=== PATIENT | male | born 1955 | race Caucasian/White ===

== ENCOUNTER 2016-03-06 16:38 | Emergency (ER) ==
[2016-03-06 16:57] VITALS: BP 132/84; TEMP 98.4; BMI 30.7
[2016-03-06] MEDS ORDERED: NORCO 10-325 PO STA (17:01)
--- NOTE | 2016-03-06 17:27 | ED.PDOC ---
General ED Provider: Dr. ERICK LAN Chief Complaint: Extremity Pain/Injury Stated Complaint: right knee pain Time Seen by Physician: 16:40 (fall on right knee 1 day ago) Mode of Arrival: Wheelchair Information Source: Patient Exam Limitations: No limitations Primary Care Provider: LUIS DE JESUS Nursing and Triage Documentation Reviewed and Agree: Yes Musculoskeletal Complaint Exam - Knee Pain Complaint/Exam Mechanism of Injury: Reports: Trauma Onset/Duration: 1 day ago fall on right knee no other injury offered Symptoms Are: Still present Current Severity: Moderate Character: Reports: Aching, Throbbing Alleviating: Reports: Rest, Position Aggravating: Reports: Movement Associated Signs and Symptoms: Denies: Swelling, Redness, Bruising, Fever, Weakness, Numbness, Tingling Able to Bear Weight: Yes Savage Test Positive: No Siddhartha Test Positive: No Differential Diagnoses: Closed Fracture Review of Systems - Review Of Systems Constitutional: Reports: No symptoms Eyes: Reports: No symptoms Ears, Nose, Mouth, Throat: Reports: No symptoms Respiratory: Reports: No symptoms Cardiac: Reports: No symptoms GI: Reports: No symptoms : Reports: No symptoms Musculoskeletal: Reports: Joint pain (right knee only). Denies: Back pain, Neck pain Skin: Reports: No symptoms Neurological: Reports: No symptoms Endocrine: Reports: No symptoms Hematologic/Lymphatic: Reports: No symptoms All Other Systems: Reviewed and Negative Past Medical History - Past Medical History Previously Healthy: Yes Endocrine: Reports: None Cardiovascular: Reports: Hypertension Respiratory: Reports: None Hematological: Reports: Anemia Gastrointestinal: Reports: None, GERD Genitourinary: Reports: None Neuro/Psych: Reports: None, Seizure Musculoskeletal: Reports: None Cancer: Reports: None - Surgical History General Surgical History: Reports: Orthopedic - Family History Family History: Reports: Unknown - Social History Smoking Status: Never smoker Alcohol Screening: None Physical Exam - Physical Exam Appearance: Well-appearing, No pain distress, Well-nourished Eyes: PA, EOMI, Conjunctiva clear ENT: Ears normal, Nose normal, Oropharynx normal Respiratory: Airway patent, Breath sounds clear, Breath sounds equal, Respirations nonlabored Cardiovascular: RRR, Pulses normal, No rub, No murmur GI/: Soft, Nontender, No masses, Bowel sounds normal, No Organomegaly Musculoskeletal: Normal strength, ROM intact, No edema, No calf tenderness Skin: Warm, Dry, Normal color Neurological: Sensation intact, Motor intact, Reflexes intact, Cranial nerves intact, Alert, Oriented Psychiatric: Affect appropriate, Mood appropriate Critical Care Note - Critical Care Note Total Time (mins): 0 Course - Course Orders, Labs, Meds: Orders Category Date Time Status Hydrocodone Bit/Acetaminophen [Hume 10-325] MEDS 03/06/16 17:01 Discontinued 1 tab PO ONCE STA KNEE, RIGHT 4 VIEWS Stat RADS 03/06/16 17:01 Taken Medications Discontinued Medications Generic Name Dose Route Start Last Admin Trade Name [place] PRN Reason Stop Dose Admin Acetaminophen/Hydrocodone Bitart 1 tab 03/06/16 17:01 03/06/16 17:21 [place] 10-325 PO 03/06/16 17:02 1 tab ONCE STA Administration Vital Signs: Temp Pulse Resp BP Pulse Ox 03/06/16 16:39 98.4 F 101 H 20 132/84 96 Departure - Departure Time of Disposition: 17:27 Disposition: HOME SELF-CARE Discharge Problem: Sprain of right knee Qualifiers: Encounter type: initial encounter Instructions: Arthralgia (ED), Knee Pain (ED) Condition: Good Pt referred to PMD for follow-up: No Additional Instructions: Please call your Family Physician as soon as possible to schedule a follow-up appointment. Allergies/Adverse Reactions: Allergies No Known Allergies Allergy (Unverified 03/06/16 16:49) Home Medications: Ambulatory Orders Gabapentin 300 mg PO BID 03/06/16 Metoprolol Succinate [Toprol Xl] 50 mg PO DAILY 03/06/16 Disposition Discussed With: Patient
--- NOTE | 2016-03-07 00:41 | DI ---
EXAM: Right knee four views HISTORY: Pain. COMPARISON: None. FINDINGS: No acute fracture or joint effusion. There is mild narrowing of the medial and patellofe moral joint compartments. IMPRESSION: No acute fracture or joint effusion. Mild bicompartmental osteoarthritic degenerative changes.
== END 2016-03-06 17:45 | disposition home or self-care (01) ==
LOC: ED 16:38
DX: S83.91XA Sprain of unspecified site of right knee, initial encounter (principal); W19.XXXA Unspecified fall, initial encounter
CPT/HCPCS: 99283